=== PATIENT | male | born 1965 | race Caucasian/White ===

== ENCOUNTER 2022-02-24 09:16 | Emergency (ER) | payer SELFPAY | END 2022-02-24 10:13 | disposition home or self-care (01) | LOC: ER1 09:16 | DX: Z13.9 Encounter for screening, unspecified (principal); I10 Essential (primary) hypertension; E11.40 Type 2 diabetes mellitus with diabetic neuropathy, unspecified; F17.200 Nicotine dependence, unspecified, uncomplicated; Z91.048 Other nonmedicinal substance allergy status | CPT/HCPCS: 99282 ==